=== PATIENT | female | born 1970 | race Caucasian/White ===

== ENCOUNTER 2024-05-13 23:55 | Emergency (ER) | payer OTHER ==
[~2024-05-13] VITALS: Ht 170.2 cm; Wt 90.7 kg
[2024-05-14 00:12] VITALS: O2SAT 99
[2024-05-14 00:18] VITALS: BP 168/79; PULSE 74; RESP 16; TEMP 36.7; O2SAT 99
[2024-05-14] MEDS ORDERED: ASPIRIN 81MG TABLET PO ONE (01:00)
[2024-05-14 01:14] LABS: CHLORIDE 104 mEq/L (98-107); POTASSIUM 4.1 mEq/L (3.5-5.1); SODIUM 139 mEq/L (136-145)
[2024-05-14 01:15] LABS: CALCIUM 9.5 mg/dL (8.7-10.4); CARBON DIOXIDE 28 mEq/L (21-32)
[2024-05-14] MEDS: MAGNESIUM/ALUMINUM HYDROXIDE/SIMETHICONE 30ML UDC PO ONE (01:15)
[2024-05-14 01:20] LABS: CREATININE 0.8 mg/dL (0.6-1.0); GLUCOSE 134 mg/dL (70-105); UREA NITROGEN BLOOD 11 mg/dL (9-23)
[2024-05-14] MEDS: NITROGLYCERIN OINT 1GM/INCH UDPKT TD ONE (01:30)
[2024-05-14 01:57] LABS: TROPONIN I HIGH SENSITIVITY < 4 ng/L (3.0-34)
[2024-05-14 02:04] LABS: HEMATOCRIT 37.2 % (36.0-48.0); HEMOGLOBIN 12.4 g/dL (12.0-16.0); MEAN CORPUSCULAR HEMOGLOBIN 28.8 pg (28.0-32.0); MEAN CORPUSCULAR HGB CONC 33.5 g/dL (31.0-37.0); PLATELET 253 x1000/uL (130-400); RED BLOOD CELL COUNT 4.32 mill/uL (4.2-5.4); RED CELL DISTRIBUTION WIDTH 13.7 % (11.6-14.6); WHITE BLOOD COUNT 6.1 x1000/uL (4.5-11.0)
[2024-05-14] MEDS ORDERED: MAGNESIUM/ALUMINUM HYDROXIDE/SIMETHICONE 30ML UDC PO PRN (06:45)
[2024-05-14] MEDS ORDERED: CLONIDINE 0.1MG TABLET PO PRN (06:45)
[2024-05-14] MEDS ORDERED: DIPHENHYDRAMINE 50MG/ML VIAL IV PRN (06:45)
[2024-05-14] MEDS ORDERED: ACETAMINOPHEN 325MG TABLET PO PRN ×2 (06:45)
[2024-05-14] MEDS ORDERED: ONDANSETRON HCL 4MG/2ML INJ IV PRN (06:45)
[2024-05-14] MEDS: SODIUM CHLORIDE 0.9% 3ML FLUSH IVF SCH (07:19)
[2024-05-14] MEDS ORDERED: ZOLPIDEM TARTRATE 5MG TABLET PO PRN (21:00)
== END 2024-05-14 07:57 | disposition left against medical advice (07) ==
LOC: ER 23:55 → EDBEDREQ 05-14 02:12 → EDBEDREQTM 05-14 02:12 → ER 05-14 07:57
DX: R07.89 Other chest pain (principal); Z90.49 Acquired absence of other specified parts of digestive tract
CPT/HCPCS: 36415; 71045; 80048; 84484; 85027; 93005; 99285